=== PATIENT | female | born 1960 | race Caucasian/White ===

== ENCOUNTER 2017-03-09 14:33 | Emergency (ER) | payer OTHER ==
[2017-03-09 14:51] VITALS: TEMP 97.3; O2SAT 100
[2017-03-09] MEDS ORDERED: ONDANSETRON 4 MG/2 ML VIAL ONE (15:34)
[2017-03-09] MEDS ORDERED: ASPIRIN 81 MG CHEWABLE TAB PO ONE (15:43)
[2017-03-09] MEDS ORDERED: NS 1,000 ML IV ONE (15:43)
[2017-03-09] MEDS ORDERED: ONDANSETRON 4 MG/2 ML VIAL IVP ONE (15:43)
--- NOTE | 2017-03-09 15:47 | EDPHY ---
H & P Time Seen by Provider: 03/09/17 15:30 HPI/ROS: CHIEF COMPLAINT: Nausea, vomiting HISTORY OF PRESENT ILLNESS: Patient is a 56-year-old female who presents emergency department with nausea vomiting earlier today. The patient was reading meters at 9000 feet. She does not normally go to that altitude. She is from [place]. She started to feel slightly nauseated earlier in the day. Her symptoms worsened. This caused her to breathe quickly and then she had reports bilateral carpal spasm. She denies abdominal pain. No chest pain or shortness of breath. No leg pain or pedal edema. No headache. Patient denies focal neurologic deficits other than bilateral carpal spasm. REVIEW OF SYSTEMS: My complete review of systems is negative except as mentioned in the HPI. Past Medical/Surgical History: Includes breast cancer Past surgical history: Includes lumpectomy, cholecystectomy, oophorectomy Social history: The patient does not smoke. She lives in [place]. Smoking Status: Never smoked Physical Exam: 36.3, 106/64, 70, 22, 100% on room air GENERAL: Well-appearing, in no acute distress, alert. HEENT: Eyes normal to inspection, normal pharynx, no signs of dehydration. NECK: No thyromegaly, no lymphadenopathy, supple. RESPIRATORY: Clear to auscultation bilaterally, no rales, rhonchi or wheezing. CVS: Regular rate and rhythm, no rubs, murmurs, or gallops. ABDOMEN: Soft, nontender, nondistended, no organomegaly. BACK: Normal to inspection, no CVA tenderness. SKIN: Normal color, no rash, warm, dry. No pallor. EXTREMITIES: No pedal edema, no calf tenderness, no Homans sign or cords, no joint swelling. NEURO/PSYCH: Higher functions: Alert and Oriented x3. Normal speech and cognition. Normal mood and affect. Cranial nerves: Normal as tested. Cerebellar: Normal as tested. Good finger to nose, good [id number], normal gait. Peripheral exam: Normal motor exam. Normal sensation. Normal reflexes. Constitutional: Initial Vital Signs Temperature (C) 36.3 C 03/09/17 14:47 Heart Rate 70 03/09/17 14:47 Respiratory Rate 22 H 03/09/17 14:47 Blood Pressure 106/64 03/09/17 14:47 O2 Sat (%) 100 03/09/17 14:47 O2 Delivery Mode Room Air Allergies/Adverse Reactions: Sulfa (Sulfonamide Antibiotics) Allergy (Verified 03/09/17 14:46) Home Medications: Medication Instructions Recorded GABAPENTIN 03/09/17 Levothyroxine 03/09/17 Lexapro 03/09/17 Ondansetron Odt [Zofran Odt 4 mg 4 mg PO Q4PRN PRN #7 tab 03/09/17 (*)] Medical Decision Making - Diagnostics EKG Interpretation: EKG shows normal sinus rhythm, normal rate, normal axis, normal intervals. There are no ST or T-wave abnormalities. EKG is normal as interpreted by me. Imaging Results: Imaging Impressions Chest X-Ray 03/09/17 15:43 Impression: Mild diffuse peribronchial thickening, of indeterminate chronicity. ED Course/Re-evaluation: I discussed possible etiologies with the patient. I answered all her questions. An IV was placed. Patient was given normal saline 1 L IV for hydration. Patient was given Zofran 4 mg IV for nausea. Patient's white count is mildly elevated 15,000. Her chemistry panel shows a slightly low CO2 at 20. 1625: The patient is doing well. She has known complaints currently. Abdomen is soft, nontender nondistended. I do not feel she needs CT imaging. Discussed the limitations of laboratory studies. If her pain or vomiting worsen she will return to the emergency department for recheck and evaluation. She was given warnings prior to leaving. She will return with worsening symptoms. Differential Diagnosis: My differential includes but is not limited to gastroenteritis, electrolyte abnormality, sugar abnormality, dehydration, ACS, acute NE, CVA, altitude illness. Patient is doing well now. She does not have an acute abdomen. I doubt HACE or HAPE. I think ACS is unlikely. Normal neuro exam. - Data Points Laboratory Results: Laboratory Results 03/09/17 15:45 03/09/17 15:45 03/09/17 03/09/17 15:45 15:45 WBC 15.34 10^3/uL H 10^3/uL (3.80-9.50) RBC 5.21 10^6/uL 10^6/uL (4.18-5.33) Hgb 15.5 g/dL g/dL (12.6-16.3) Hct 45.1 % % (38.0-47.0) MCV 86.6 fL fL (81.5-99.8) MCH 29.8 pg pg (27.9-34.1) MCHC 34.4 g/dL g/dL (32.4-36.7) RDW 12.7 % % (11.5-15.2) Plt Count 363 10^3/uL 10^3/uL (150-400) MPV 9.0 fL fL (8.7-11.7) Neut % (Auto) 83.0 % H % (39.3-74.2) Lymph % (Auto) 10.8 % L % (15.0-45.0) Rankin % (Auto) 4.7 % % (4.5-13.0) Eos % (Auto) 0.3 % L % (0.6-7.6) Baso % (Auto) 0.5 % % (0.3-1.7) Nucleat RBC Rel Count 0.0 % % (0.0-0.2) Absolute Neuts (auto) 12.74 10^3/uL H 10^3/uL (1.70-6.50) Absolute Lymphs (auto) 1.65 10^3/uL 10^3/uL (1.00-3.00) Absolute Monos (auto) 0.72 10^3/uL 10^3/uL (0.30-0.80) Absolute Eos (auto) 0.05 10^3/uL 10^3/uL (0.03-0.40) Absolute Basos (auto) 0.07 10^3/uL 10^3/uL (0.02-0.10) Absolute Nucleated RBC 0.00 10^3/uL 10^3/uL (0-0.01) Immature Gran % 0.7 % % (0.0-1.1) Immature Gran # 0.11 10^3/uL H 10^3/uL (0.00-0.10) Sodium 139 mEq/L mEq/L (134-144) Potassium 3.6 mEq/L mEq/L (3.5-5.2) Chloride 106 mEq/L mEq/L (97-110) Carbon Dioxide 20 mEq/l L mEq/l (22-31) Anion Gap 13 mEq/L mEq/L (8-16) BUN 19 mg/dL mg/dL (7-23) Creatinine 0.9 mg/dL mg/dL (0.6-1.0) Estimated GFR > 60 Glucose 135 mg/dL H mg/dL (70-100) Calcium 10.0 mg/dL mg/dL (8.5-10.4) Total Bilirubin 0.5 mg/dL mg/dL (0.1-1.4) Conjugated Bilirubin 0.3 mg/dL mg/dL (0.0-0.5) Unconjugated Bilirubin 0.2 mg/dL mg/dL (0.0-1.1) AST 25 IU/L IU/L (14-46) ALT 34 IU/L IU/L (9-52) Alkaline Phosphatase 102 IU/L IU/L (38-126) Troponin I < 0.012 ng/mL ng/mL (0-0.034) NT-Pro-B Natriuret Pep 51 pg/mL pg/mL (0-125) Total Protein 8.1 g/dL g/dL (6.3-8.2) Albumin 4.9 g/dL g/dL (3.5-5.0) Lipase 77.0 IU/L IU/L (23-300) Medications Given: Discontinued Medications Aspirin (Aspirin) 324 mg PO EDNOW ONE Stop: 03/09/17 15:44 Last Admin: 03/09/17 16:00 Dose: 324 mg Sodium Chloride (Ns) 1,000 mls @ 0 mls/hr IV ONCE ONE; Wide Open PRN Reason: Protocol Stop: 03/09/17 15:44 Last Admin: 03/09/17 15:52 Dose: 1,000 mls Ondansetron HCl (Zofran) 4 mg IVP EDNOW ONE Stop: 03/09/17 15:44 Last Admin: 03/09/17 15:52 Dose: 4 mg Departure - Departure Disposition: Home, Routine, Self-Care Clinical Impression: Nausea & vomiting Qualifiers: Vomiting type: unspecified Vomiting Intractability: non-intractable Qualified Code(s): R11.2 - Nausea with vomiting, unspecified Condition: Good Instructions: Acute Nausea and Vomiting (ED) Additional Instructions: Return with increasing nausea, abdominal pain, fever, headache, weakness, numbness, or any other concerns. Referrals: Too Guzmán MD [Medical Doctor] - 3-4 days, if not improved Prescriptions: Ondansetron Odt [Zofran Odt 4 mg (*)] 4 mg PO Q4PRN PRN #7 tab PRN Reason: For Nausea & Vomiting
[2017-03-09 15:53] LABS: % IMMATURE GRANULYOCYTES 0.7 % (0.0-1.1); ABSOLUTE IMMATURE GRANULOCYTES 0.11 10^3/uL (0.00-0.10); ADD DIFF? NO; ADD MORPH? NO; ADD SCAN? NO; ATYPICAL LYMPHOCYTE FLAG 0 (0-99); FRAGMENT RBC FLAG 0 (0-99); HEMATOCRIT 45.1 % (38.0-47.0); HEMOGLOBIN 15.5 g/dL (12.6-16.3); LEFT SHIFT FLG 0 (0-99); LIPEMIA HEMOLYSIS FLAG 90 (0-99); MEAN CELL HEMOGLOBIN 29.8 pg (27.9-34.1); MEAN CELL HEMOGLOBIN CONCENTR. 34.4 g/dL (32.4-36.7); MEAN CELL VOLUME 86.6 fL (81.5-99.8); PLATELET CLUMPS FLAG 0 (0-99); PLATELET COUNT 363 10^3/uL (150-400); RED BLOOD CELL COUNT 5.21 10^6/uL (4.18-5.33); RED CELL DISTRIBUTION WIDTH 12.7 % (11.5-15.2)
[2017-03-09 16:04] LABS: ALANINE AMINOTRANSFERASE 34 IU/L (9-52); ALBUMIN 4.9 g/dL (3.5-5.0); ALKALINE PHOSPHATASE 102 IU/L (38-126); ANION GAP 13 mEq/L (8-16); ASPARTATE AMINOTRANSFERASE 25 IU/L (14-46); BILIRUBIN,TOTAL 0.5 mg/dL (0.1-1.4); BILIRUBIN-CONJUGATED 0.3 mg/dL (0.0-0.5); BILIRUBIN-UNCONJUGATED 0.2 mg/dL (0.0-1.1); CARBON DIOXIDE 20 mEq/l (22-31); CHLORIDE 106 mEq/L (97-110); CREATININE 0.9 mg/dL (0.6-1.0); GLOMERULAR FILTRATION RATE > 60; GLUCOSE 135 mg/dL (70-100); POTASSIUM 3.6 mEq/L (3.5-5.2); SODIUM 139 mEq/L (134-144); TOTAL PROTEIN 8.1 g/dL (6.3-8.2)
[2017-03-09 16:17] LABS: TROPONIN I < 0.012 ng/mL (0-0.034)
--- NOTE | 2017-03-09 16:18 | CPEKG ---
Heart Rate: 66 RR Interval: 909 P-R Interval: 168 QRSD Interval: 98 QT Interval: 464 QTC Interval: 487 P [place]: 57 QRS [place]: 54 T Wave [place]: 39 EKG Severity - BORDERLINE ECG - EKG Impression: SINUS RHYTHM EKG Impression: BORDERLINE PROLONGED QT INTERVAL Electronically Signed By: Deidra Jewell 09-Mar-2017 23:48:08
[2017-03-09 16:50] VITALS: BP 132/81; PULSE 64; RESP 18
== END 2017-03-09 16:48 | disposition home or self-care (01) ==
DX: R11.2 Nausea with vomiting, unspecified (principal); Z85.3 Personal history of malignant neoplasm of breast
CPT/HCPCS: 96374; J2405